=== PATIENT | female | born 1985 | race African-American/Black ===

== ENCOUNTER 2018-12-25 11:07 | Emergency (ER) | payer OTHER ==
[~2018-12-25] VITALS: Ht 157.5 cm; Wt 68.0 kg
[~2018-12-25 11:07] MED LIST: GLUCOPHAGE500 MG PO; NAPROSYN500 MG PO; TRAMADOL 50 MG50 MG PO; ZANTAC 150MG T150 MG PO
[2018-12-25] MEDS ORDERED: NORFLEX100 MG PO (12:17)
[2018-12-25] MEDS ORDERED: IBUPROFEN 600600 M1 PO (12:17)
[2018-12-25 12:22] VITALS: BP 103/63
== END 2018-12-25 12:41 | disposition home or self-care (01) ==
LOC: ER 11:07
DX: S39.012A Strain of muscle, fascia and tendon of lower back, initial encounter (principal); S16.1XXA Strain of muscle, fascia and tendon at neck level, initial encounter; S29.012A Strain of muscle and tendon of back wall of thorax, initial encounter; F17.210 Nicotine dependence, cigarettes, uncomplicated; V89.2XXA Person injured in unspecified motor-vehicle accident, traffic, initial encounter; Y93.I9 Activity, other involving external motion; Y92.410 Unspecified street and highway as the place of occurrence of the external cause; Y99.8 Other external cause status